=== PATIENT | male | born 1995 | race Caucasian/White ===

== ENCOUNTER 2018-03-24 12:46 | Emergency (ER) | payer SELFPAY, OTHER ==
[2018-03-24] MEDS: LORAZEPAM 1 MG TAB PO (14:47)
[2018-03-24] MEDS: ALBUTEROL 0.083% (NEB) 2.5 MG/3 ML AMP HHN (14:51)
== END 2018-03-24 15:48 | disposition home or self-care (01) ==
LOC: FTE 12:46
DX: T65.6X1A Toxic effect of paints and dyes, not elsewhere classified, accidental (unintentional), initial encounter (principal)
CPT/HCPCS: 94664; 99284-25